=== PATIENT | male | born 1980 | race Caucasian/White ===

== ENCOUNTER 2023-09-22 09:36 | Emergency (ER) | payer OTHER ==
[~2023-09-22] VITALS: Ht 160 cm; Wt 79.5 kg
[2023-09-22 09:44] VITALS: BP 119/76; PULSE 62; RESP 14; TEMP 98.4
[2023-09-22 09:50] LABS: COVID AG,FIA SOURCE NASAL SWAB
[2023-09-22 10:31] LABS: INFLUENZA TYPE A NEGATIVE FOR TYPE A (NEGATIVE); INFLUENZA TYPE B NEGATIVE FOR TYPE B (NEGATIVE)
[2023-09-22 10:37] LABS: SARS-COV2 (COVID) ANTIGEN,FIA Positive (Negative)
[2023-09-22] MEDS: ACETAMINOPHEN 500 MG TABLET PO ONE (12:19)
[2023-09-22] MEDS ORDERED: IBUP-1492 PO (12:21)
[2023-09-22] MEDS ORDERED: ACET-3385 PO (12:21)
== END 2023-09-22 12:29 | disposition home or self-care (01) ==
LOC: EMS 09:36
DX: U07.1 COVID-19 (principal)
CPT/HCPCS: 87804; 99283